=== PATIENT | male | born 1990 | race Hispanic/Latino ===

== ENCOUNTER 2017-10-23 01:06 | Emergency (ER) | payer OTHER ==
[~2017-10-23] VITALS: Ht 175.3 cm; Wt 86.2 kg
[~2017-10-23 01:06] MED LIST: NKM
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
[2017-10-23 01:20] VITALS: BP 150/90
[2017-10-23 01:24] VITALS: BP 150/90
== END 2017-10-23 01:50 | disposition home or self-care (01) ==
LOC: EDBD 01:06 → EMR 01:31
DX: F15.10 Other stimulant abuse, uncomplicated (principal); F20.9 Schizophrenia, unspecified
CPT/HCPCS: 99283